=== PATIENT | female | born 1995 | race Caucasian/White ===

== ENCOUNTER 2019-08-15 07:18 | Outpatient (CLI) | payer OTHER ==
--- NOTE | 2019-08-15 07:56 | ULT ---
ABDOMINAL ULTRASOUND HISTORY: Gastroesophageal reflux, bloating, and constipation. FINDINGS: Liver: Within normal limits. Gallbladder: Minimal increased echogenicity material is seen within the gallbladder lumen likely repr esenting tiny amount of sludge. A few nonshadowing echogenic foci are seen probably related to cholesterol crystals. No gallbladder calculus is seen, and there is no gallbladder wall thickening or pericholecystic fluid. Common duct: Common duct is normal in caliber measuring 0.3 cm in diameter. Pancreas: The limited visualized pancreas demonstrates a normal sonographic appearance. IVC: Limited visualized IVC has a normal sonographic appearance. Aorta: The aorta is normal in caliber. Spleen: Within normal limits. Kidneys: Kidneys demonstrate a normal sonographic appearance bilaterally with the right kidney measur ing 10 cm in length, and the left kidney measures 9.9 cm in length. IMPRESSION: Small amount of sludge and cholesterol crystals within the gallbladder lumen. No gallbladder calculus is seen. The common duct is normal in caliber.
== END 2019-08-15 07:19 | disposition home or self-care (01) ==
LOC: BICULT 07:18
PROVIDERS: ATTEND Internal Medicine Gastroenterology
DX: K21.9 Gastro-esophageal reflux disease without esophagitis (principal); K59.00 Constipation, unspecified; R10.32 Left lower quadrant pain; R14.0 Abdominal distension (gaseous); K82.8 Other specified diseases of gallbladder
CPT/HCPCS: 93975